=== PATIENT | female | born 1970 ===

== ENCOUNTER 2021-07-06 05:57 | Day surgery (SDC) | payer OTHER | END 2021-07-06 15:10 | disposition home or self-care (01) | LOC: CIR.AMB 05:57 | PROVIDERS: ATTEND Colon & Rectal Surgery | DX: D12.9 Benign neoplasm of anus and anal canal (principal); Z20.822 Contact with and (suspected) exposure to COVID-19; Z86.010 Personal history of colon polyps; K64.1 Second degree hemorrhoids; K21.9 Gastro-esophageal reflux disease without esophagitis; G43.909 Migraine, unspecified, not intractable, without status migrainosus; Z85.41 Personal history of malignant neoplasm of cervix uteri; E66.9 Obesity, unspecified ==